=== PATIENT | male | born 1935 | race Caucasian/White ===

== ENCOUNTER → 2017-02-06 | Outpatient (CLI) | payer OTHER ==
[~2017-02-06] MED LIST: ACETAMINOPHEN325 M1 PO; ADULT LOW DOSE81 MG; AMLODIPINE BESY10 MG PO; ASPIR 8181 MG PO; CELEBREX 200 M200 MG PO; CENTRUM SILVER1 EAC2 PO; CIPROFLOXACIN250 M2 PO; COLACE 100 MG100 MG PO; CRESTOR20 MG PO; FISH OIL 1,001000 M2 PO; KEPPRA 500 MG500 M1 PO; PHENTERMINE H37.5 MG; PROTONIX40 M2 PO; RISPERDAL 1 MG T1 MG PO; TRANSDERM-SCO1 PATC1 TRANSDERM; VITAMIN D1000 UNI1 PO; XENICAL120 MG; [UNRECOGNIZED DRUG - REMARK]
--- NOTE | ~2017-02-06 | 2DMMODE ---
[facility] [address] [place] [address] 2 D/M-MODE ECHOCARDIOGRAM Name: ELIZABETH RAMON Room #: [facility]#: [id number] Admission: 02/06/17 Attend Phys: Ross Trimble Discharge: Date of : 31 Date of Service: 02/06/17 0952 Report #: [id number] THIS REPORT FOR: //name// APPROVED REPORT Study performed: 02/06/2017 07:50:19 EXAM: Comprehensive 2D, Doppler, and color-flow Echocardiogram Patient Location: Out-Patient Other Information Study Quality: Good Indications Palpitations Hx: HTN, HLP 2D Dimensions RVDd: 42.84 mm LVEF(%): 67.81 (>50%) IVSd: 10.24 (7-11mm) LVOT Diam: 23.99 (18-24mm) LVDd: 52.60 mm PWd: 9.96 (7-11mm) Ascending Ao: 41.25 (22-36mm) LVDs: 32.59 (25-40mm) Aortic Root: 41.40 mm Marrero's LVEF: 67.81 % Volumes Left Atrial Volume (Systole) Single Plane 4CH: 51.25 mL Single Plane 2CH: 59.93 mL LA ESV Index: 25.00 mL/m2 Aortic Valve AoV Peak Jeffrey.: 1.28 m/s AO Peak Gr.: 6.55 mmHg LVOT Max P.59 mmHg LVOT Max V: 1.07 m/s LATISHA Vmax: 3.78 cm2 Mitral Valve E/A Ratio: 0.7 MV Decel. Time: 445.52 ms MV E Max Jeffrey.: 0.69 m/s MV A Jeffrey.: 0.93 m/s MV PHT: 129.20 ms IVRT: 73.82 ms [facility] [place] [address] 2 D/M-MODE ECHOCARDIOGRAM Name: ELIZABETH RAMON Room #: [facility] Garza#: [id number] Admission: 02/06/17 Attend Phys: Ross Trimble Discharge: Date of : 31 Date of Service: 02/06/17 0952 Report #: [id number] Pulmonary Valve PV Peak Jeffrey.: 0.85 m/s PV Peak Gr.: 2.92 mmHg Tricuspid Valve TR Peak Jeffrey.: 2.36 m/s TR Peak Gr.: 22.35 mmHg Left Ventricle The left ventricle is normal size. There is normal left ventricular wall thickness. Left ventricular systolic function is normal. LVEF is 55%. Grade I - abnormal relaxation pattern. Right Ventricle The right ventricle is normal size. The right ventricular systolic function is normal. Atria The left atrium size is normal. The right atrium size is normal. Aortic Valve Aortic valve is calcified. Mild aortic regurgitation. There is no aortic valvular stenosis. Mitral Valve The mitral valve is normal in structure. Mild mitral regurgitation. No evidence of mitral valve stenosis. Tricuspid Valve The tricuspid valve is normal in structure. There is mild tricuspid regurgitation. Estimated PAP is 22mmHg plus the right atrial pressure. Pulmonic Valve The pulmonary valve is normal in structure. Trace pulmonic regurgitation. Great Vessels Aortic root is mildly dilated. The ascending aorta is mildly dilated. The inferior vena cava is not well visualized. Pericardium There is no pericardial effusion. <Conclusion> [facility] [address] [place] [address] 2 D/M-MODE ECHOCARDIOGRAM Name: ELIZABETH RAMON Room #: [facility]#: [id number] Admission: 02/06/17 Attend Phys: Ross Trimble Discharge: Date of : 31 Date of Service: 02/06/17 0952 Report #: [id number] The left ventricle is normal size. LVEF is 55%. Aortic valve is calcified. Mild aortic regurgitation. The tricuspid valve is normal in structure. There is mild tricuspid regurgitation. Estimated PAP is 22mmHg plus the right atrial pressure. The pulmonary valve is normal in structure. Trace pulmonic regurgitation. Aortic root is mildly dilated. The ascending aorta is mildly dilated. <ELECTRONICALLY SIGNED> By: Ross Griffith MD 02/06/17 0952 0952 0952 Ross Griffith MD /LESLIE
== END ==
LOC: CV 08:33
DX: I10 Essential (primary) hypertension (principal); R00.2 Palpitations; E78.5 Hyperlipidemia, unspecified